=== PATIENT | male | born 1990 | race African-American/Black ===

== ENCOUNTER 2019-09-08 18:33 | Emergency (ER) | payer BC ==
--- NOTE | 2019-09-08 19:36 | ER Document Report ---
ED Hand/Wrist Injury - General Chief Complaint: Hand Injury Stated Complaint: RIGHT HAND/KNUCKLE INJURY Time Seen by Provider: 09/08/19 19:29 Primary Care Provider: LI GARZA DO [ACTIVE STAFF] - Follow up as needed Mode of Arrival: Ambulatory Information source: Patient Notes: 29-year-old male presented to ED for complaint of pain to his right hand. He states an engine block fell on his hand about 630 tonight. He states he has not had any Tylenol Motrin or anything for pain. I did offer Tylenol and Motrin and he refused both. He is alert oriented respirations regular nonlabored speaking in full sentences he is able to move all fingers. TRAVEL OUTSIDE OF THE [place] IN LAST 30 DAYS: No - HPI Injury to: Hand Onset: This evening - About 630 this evening Where: Outdoors Timing: Still present Quality of pain: Achy, Sharp Severity: Moderate Pain Level: 2 Context: Other - Engine block fell on his hand - Related Data Allergies/Adverse Reactions: No Known Allergies Allergy (Unverified 09/08/19 19:32) Past Medical History - General Information source: Patient - Social History Smoking Status: Current Every Day Smoker Cigarette use (# per day): Yes - 3/4 pack a day Smoking Education Provided: Yes - 4 minutes Frequency of alcohol use: None Drug Abuse: None Occupation: Cook Lives with: Friend Family History: Reviewed & Not Pertinent Patient has suicidal ideation: No Patient has homicidal ideation: No - Past Medical History Cardiac Medical History: Reports: None Pulmonary Medical History: Reports: None EENT Medical History: Reports: None Neurological Medical History: Reports: None Endocrine Medical History: Reports: None Renal/ Medical History: Reports: None Malignancy Medical History: Reports None GI Medical History: Reports: None Musculoskeletal Medical History: Reports None Skin Medical History: Reports None Psychiatric Medical History: Reports: None Traumatic Medical History: Reports: None Infectious Medical History: Reports: None Surgical Hx: Negative Past Surgical History: Reports: None Review of Systems - Review of Systems Constitutional: No symptoms reported EENT: No symptoms reported Cardiovascular: No symptoms reported Respiratory: No symptoms reported Gastrointestinal: No symptoms reported Genitourinary: No symptoms reported Male Genitourinary: No symptoms reported Musculoskeletal: Other - Pain swelling right hand Skin: No symptoms reported Hematologic/Lymphatic: No symptoms reported Neurological/Psychological: No symptoms reported -: Yes All other systems reviewed and negative Physical Exam - Vital signs Vitals: Temp Pulse Resp BP Pulse Ox 99.2 F 65 16 141/83 H 97 09/08/19 18:45 09/08/19 18:45 09/08/19 18:45 09/08/19 18:45 09/08/19 18:45 Interpretation: Normal - General General appearance: Appears well, Alert - HEENT Head: Normocephalic, Atraumatic Eyes: Normal Pupils: PERRL - Respiratory Respiratory status: No respiratory distress Chest status: Nontender Breath sounds: Normal Chest palpation: Normal - Cardiovascular Rhythm: Regular Heart sounds: Normal auscultation Murmur: No - Abdominal Inspection: Normal Distension: No distension Bowel sounds: Normal Tenderness: Nontender Organomegaly: No organomegaly - Back Back: Normal, Nontender - Extremities General upper extremity: Normal color, Normal ROM, Normal temperature General lower extremity: Normal inspection, Nontender, Normal color, Normal ROM, Normal temperature, Normal weight bearing. No: Margaret's sign Hand: Tender, Ecchymosis, No evidence of human bite, No evidence of FB, Swelling. No: Abrasion, Deformity, Dislocation, Instability, Laceration, Nail injury, Tendon deficit - Neurological Neuro grossly intact: Yes Cognition: Normal Orientation: AAOx4 [place] Coma Scale Eye Opening: Spontaneous [place] Coma Scale Verbal: Oriented [place] Coma Scale Motor: Obeys Commands [place] Coma Scale Total: 15 Speech: Normal Motor strength normal: LUE, RUE, LLE, RLE Sensory: Normal - Psychological Associated symptoms: Normal affect, Normal mood - Skin Skin Temperature: Warm Skin Moisture: Dry Skin Color: Normal Course - Re-evaluation Re-evalutation: 09/08/19 22:19 X-ray was discussed with patient. Report of x-ray given to patient before discharge. I did discuss with patient the need to elevate and ice the hand as he has a broken fourth and fifth metacarpal. He was treated with a splint and pain medications. He was discharged home with instructions to follow-up with orthopedics by telephone tomorrow. Patient did verbalize understanding and agreement with treatment plan and patient was discharged home. - Vital Signs Vital signs: Temp Pulse Resp BP Pulse Ox 98.3 F 67 18 132/78 H 98 09/08/19 21:20 09/08/19 21:20 09/08/19 21:20 09/08/19 21:20 09/08/19 21:20 - Diagnostic Test Radiology reviewed: Image reviewed, Reports reviewed Procedures - Immobilization Hand right Time completed: 21:16 Immobilizer type: Other Performed by: PCT Post-Proc Neuro Vasc Exam: Normal Alignment checked and good: Yes - No changes Discharge - Discharge Clinical Impression: Fracture fourth and fifth metacarpal right Condition: Stable Disposition: HOME, SELF-CARE Additional Instructions: Fractured fourth and fifth Metacarpal (Boxer's) You have a fracture of the fifth metacarpal bone in the hand, often called a Boxer's Fracture. The fracture is usually caused by striking the knuckle against a hard surface -- such as hitting a wall with the fist. This fracture heals well. Some degree of angle in the fracture is perfectly acceptable, resulting in only a slightly rounder knuckle. Your physician has determined whether your fracture could benefit from "setting", and has outlined a treatment plan for you. The usual treatment is splinting for four to six weeks -- a cast is not usually necessary. At first, the injury should be elevated and ice packed. Contact the doctor at once if swelling or pain becomes severe, or if numbness develops. Splint Pending Casting Your injury can't be casted until the swelling has subsided. Therefore, a temporary splint has been placed to protect the injury. Full use of an injured area is not possible in a splint. You should follow the doctor's instructions concerning rest, ice, and elevation of the injury. Never do anything which causes pain under the splint. Keep the splint on ALL THE TIME until you return for casting. If there is unexpected severe pain, or numbness, discoloration, or swelling beyond the spli nt, you should return at once. You need to follow-up with the orthopedic to determine if you need surgery to this fracture. ICE & ELEVATION: Apply ice packs frequently against the painful area. Many different schedules are recommended, such as "20 minutes on, 20 minutes off" or "one hour ice, two hours rest." If you need to work, you may need to go longer between ice treatments. You should plan to have the area ice packed AT LEAST one-fourth of the time. The ice should be applied over the wrap, tape, or splint, or over a layer of cloth -- not directly against the skin. Some ice bags have a built-in cloth and can be put directly on the skin. Your injured part should be elevated as much as possible over the next 48 hours. Try to keep the injury above the level of the heart. Avoid use of the injured area. Elevation and rest will decrease the swelling. USE OF DERM-QCT-GNKIKSC IBUPROFEN: Ibuprofen (Advil, Nuprin, Medipren, Motrin IB) is a medication for fever and pain control. In addition, it has anti- inflammatory effects which may be beneficial, especially in the treatment of injuries. It's best to take ibuprofen with food. Persons with ulcer disease or allergy to aspirin should notify their physician of this before taking ibuprofen. Ibuprofen can be given every four to six hours, for a total of four doses daily. Age Pain or fever dose Antiinflammatory dose 6-8 yr 200 mg (1 tab) 200 mg (1 tab) 9-11 yr 200 mg (1 tab) 200-400 mg (1-2 tab) 11-14 yr 200-400 mg (1-2 tab) 400 mg (2 tab) 15-adult 400 mg (2 tab) 600 mg (3 tab) ORAL NARCOTIC MEDICATION: You have been given a [place] dispense pack for pain control. This medication is a narcotic. It's best taken with food, as nausea can result if taken on an empty stomach. Don't operate machinery or drive within six hours of taking this medication. Do not combine this medicine with alcohol, or with any medication which can cause sedation (such as cold tablets or sleeping pills) unless you get permission from the physician. Narcotics tend to cause constipation. If possible, drink plenty of fluids and eat a diet high in fiber and fruits. Please be aware that prescription narcotics also have the potential for abuse. People become addicted to these medications because of the general sense of wellbeing that they induce. This feeling along with a significant reduction in tension, anxiety, and aggression provides a stimulating seductive quality to these drugs. Once your pain is under control, we encourage you to discard your unused narcotics. FOLLOW-UP CARE: If you have been referred to a physician for follow-up care, call the physicians office for an appointment as you were instructed or within the next two days. If you experience worsening or a significant change in your symptoms, notify the physician immediately or return to the Emergency Department at any time for re-evaluation. Forms: Elevated Blood Pressure, Special Work Note, Smoking Cessation Education Referrals: LI GARZA DO [ACTIVE STAFF] - Follow up tomorrow
--- NOTE | 2019-09-08 20:35 | RADIOLOGY REPORT (SQ) ---
EXAM DESCRIPTION: X-ray, three views of the right hand CLINICAL HISTORY: 29 years Male, crush injury COMPARISON: None. FINDINGS: Fracture of the fourth metacarpal is identified in the mid diaphysis with one complete shaft width displacement posteriorly of the distal fracture fragment and angulation. In addition there is a fracture of the fifth metacarpal at the distal metaphysis with apex dorsal angulation. Soft tissue swelling is seen. Bone mineralization is normal. No other fractures are noted. No air is noted in the soft tissues. IMPRESSION: Fractures of the fourth and fifth metacarpals.
[2019-09-08] MEDS ORDERED: HYDROCODONE/ACETAMINOPHEN 5-325 MG (6 TAB/ER DISP) PO PRN (20:37)
[2019-09-08 21:28] VITALS: BP 132/78
== END 2019-09-08 21:36 | disposition home or self-care (01) ==
LOC: ER 18:33
DX: S62.394A Other fracture of fourth metacarpal bone, right hand, initial encounter for closed fracture (principal); S62.396A Other fracture of fifth metacarpal bone, right hand, initial encounter for closed fracture; W20.8XXA Other cause of strike by thrown, projected or falling object, initial encounter; F17.210 Nicotine dependence, cigarettes, uncomplicated; Z71.6 Tobacco abuse counseling
CPT/HCPCS: 99283; 99406

== ENCOUNTER 2019-09-13 08:53 | Day surgery (SDC) | payer BC ==
[~2019-09-13 08:53] MED LIST: CEFAZOLIN 2 GM/D5W RTU 2 GM/50 ML RTUPB IV PRN; DEXAMETHASONE SOD PHOSPHATE INJ 4 MG/1 ML VIAL ONE; FENTANYL CITRATE INJ/PF 100 MCG/2 ML AMPUL ONE; MIDAZOLAM 2 MG/2 ML INJ ONE; ONDANSETRON HCL INJ/PF 4 MG/2 ML SDV ONE; PROPOFOL INJ 200 MG/20 ML VIAL IV ONE
[2019-09-13] MEDS ORDERED: CEFAZOLIN 2 GM/D5W RTU 2 GM/50 ML RTUPB IV ONE (09:31)
[2019-09-13] MEDS ORDERED: MIDAZOLAM 2 MG/2 ML INJ ONE (12:08)
[2019-09-13] MEDS ORDERED: FENTANYL CITRATE INJ/PF 100 MCG/2 ML AMPUL ONE (12:08)
[2019-09-13] MEDS ORDERED: PROPOFOL INJ 200 MG/20 ML VIAL IV ONE (12:08)
[2019-09-13] MEDS ORDERED: DEXAMETHASONE SOD PHOSPHATE INJ 4 MG/1 ML VIAL ONE (12:08)
[2019-09-13] MEDS ORDERED: ONDANSETRON HCL INJ/PF 4 MG/2 ML SDV ONE (12:08)
[2019-09-13] MEDS ORDERED: OXYCODONE-ACETAMINOPHEN 5-325 MG TABLET PO PRN ×3 (12:50→14:01)
[2019-09-13] MEDS ORDERED: MEPERIDINE HCL/PF INJ 25 MG/1 ML DISP.SYRIN IV PRN (12:50)
[2019-09-13] MEDS ORDERED: MORPHINE SULFATE 10 MG/ML INJ IV PRN ×2 (12:50→14:01)
[2019-09-13] MEDS ORDERED: DIPHENHYDRAMINE HCL 50 MG/ML VIAL IV PRN (12:50)
[2019-09-13] MEDS ORDERED: FENTANYL CITRATE INJ/PF 100 MCG/2 ML AMPUL IV PRN ×3 (12:50)
[2019-09-13] MEDS ORDERED: PROMETHAZINE HCL INJ 25 MG/1 ML VIAL IV PRN ×2 (12:50)
[2019-09-13] MEDS ORDERED: BUPIVACAINE HCL 0.5 % INJ/PF 30 ML SDV ONE (13:04)
[2019-09-13] MEDS ORDERED: ONDANSETRON HCL INJ/PF 4 MG/2 ML SDV IV PRN (14:01)
--- NOTE | 2019-09-13 14:01 | Operative Report ---
Operative Report DATE OF SURGERY: 09/13/19 PREOPERATIVE DIAGNOSIS: 1. Right fourth metacarpal shaft fracture. 2. Right fifth metacarpal neck fracture POSTOPERATIVE DIAGNOSIS: Same OPERATION: Open reduction fixation right fourth metacarpal shaft fracture with headless compression screw. Open reduction fixation right fifth metacarpal neck fracture with headless compression screw SURGEON: LI GARZA ANESTHESIA: GA COMPLICATIONS: None ESTIMATED BLOOD LOSS: Minimal PROCEDURE: Indication for above procedure: 29-year-old male who sustained fracture of his fourth and fifth metacarpals after punching a immobile object. Patient was seen at the emergency room where x-rays confirmed diagnosis. Patient was placed in a splint. Upon follow-up we discussed treatment options including operative versus nonoperative intervention after discussing risk and benefits decision was made to proceed with operative treatment. Procedure In Detail: Patient was seen and evaluated in the preoperative holding area. The upper extremity was initialized and marked. Patient received 2g of Ancef IV for bacterial prophylaxis. Patient was taken back to the operative room where transferred to the operative table and placed under general anesthesia. Once they were adequately anesthetized a nonsterile tourniquet was placed on the upper extremity. A surgical team debriefing was performed ensuring all instrumentation was available, the surgical procedure was discussed with possible concerns reviewed. The upper extremity was prepped with chlorhexidine and alcohol and draped in a sterile fashion. A timeout was done identifying correct patient, procedure and extremity everyone in attendance agree with this and verbalized no concerns. The extremity was exsanguinated the tourniquet was inflated to 250 mmHg. Longitudinal skin incision was made along the fourth MCP joint. Blunt dissection was performed a small peripheral veins were coagulated bipolar cautery. Extensor mechanism was then split midline to expose the metacarpal head. The dorsal third metacarpal head was identified and confirmed on C arm. Appropriate size K wire for [place] 3.0 mm headless compression screws was then placed to the fracture site the fracture was then reduced under fluoroscopy and K wire placed across the fracture. C-arm was obtained confirming reduction of the fracture there was no evidence of malrotation. The screw was countersunk and overdrilled and a 3.0 mm x 40 mm headless compression screw was placed across the fracture site obtaining interfragmentary compression. Attention then turned to the fifth metacarpal neck fracture. Longitudinal skin incision was made along the fifth MCP joint tensor mechanism was split fracture was reduced correcting patient's volar angular deformity there was likely prior fracture along the fifth metacarpal shaft which had completely healed and thus trajectory of the K wire was changed in order to obtain fixation. Appropriate size K wire for headless compression screws was then placed across the fracture site with a starting point along the dorsal third of the metacarpal head. C-arm was obtained confirming appropriate placement. A 3.0 mm x 36 mm headless compression screw was then inserted obtaining three-point fixation. At completion patient was placed through tenodesis there is no evidence of malrotation. No evidence of shortening. Wound was copiously irrigated with normal saline. 20 cc of 0.5% lidocaine without epinephrine was injected for postoperative pain control. Extensor mech anism closed interrupted 3-0 Vicryl suture. Skin was closed with subcuticular 4-0 Monocryl reinforced with Dermabond and Steri-Strips. Patient was placed in a volar resting splint immobilizing the MP joints of the fourth and fifth digits leaving the PIP and DIP joints free. Tourniquet was deflated patient had normal peripheral perfusion. Sponge counts, instrument counts, needle counts were correct. Patient was then awoken from anesthesia. Transferred from the operating room table to the operating room stretcher. There was no intraoperative complications patient tolerated procedure well stable to PACU. Postoperative plan: We will obtain x-rays at 2-week follow-up. Patient follow-up in 2 weeks we will transition to ulnar gutter splint which he may remove for range of motion exercises.
--- NOTE | 2019-09-13 14:02 | Discharge Summary ---
Discharge Summary (SDC) - Discharge Final Diagnosis: Right fourth/fifth metacarpal fracture Date of Surgery: 09/13/19 Discharge Date: 09/13/19 Condition: Good Forms: ASU Anesthesia D/C Instruction, Discharge POC-Surgical Service Treatment or Instructions: Schedule Follow Up w/ Dr. Jayce Garza @ [facility] for Surgery to be seen in 10-14 days or as scheduled [place]: [place]: [place]: Ice and elevate Keep splint clean/dry/intact, do not remove. If your fingers become numb please unwrap the Geraldo wrap but leave the splint in place, if the sensation does not return within 30 minutes please return to the emergency department. May begin finger range of motion attempting to make full fist. Please use ibuprofen (Motrin or Advil) 600-800 mg every 8 hours as needed for pain or fever DO NOT TAKE w/ TORADOL may use once TORADOL complete. You may also use acetaminophen (Tylenol) 1000 mg every 4-6 hours as needed for pain or fever. Please be aware that many medications contain acetaminophen, do not exceed a total of 1000 mg of acetaminophen every 6 hours. If ibuprofen and acetaminophen are not sufficient for your pain you may take the Percocet/[place]. Please be aware that the Percocet/[place] does contain Tylenol. Stool softener of choice when on pain medication. USE OF AGDA-RMR-TNLPURU IBUPROFEN: Ibuprofen (Advil, Nuprin, Medipren, Motrin IB) is a medication for fever and pain control. In addition, it has anti- inflammatory effects which may be beneficial, especially in the treatment of injuries. It's best to take ibuprofen with food. Persons with ulcer disease or allergy to aspirin should notify their physician of this before taking ibuprofen. Ibuprofen can be given every four to six hours, for a total of four doses daily. Age Pain or fever dose Antiinflammatory dose 6-8 yr 200 mg (1 tab) 200 mg (1 tab) 9-11 yr 200 mg (1 tab) 200-400 mg (1-2 tab) 11-14 yr 200-400 mg (1-2 tab) 400 mg (2 tab) 15-adult 400 mg (2 tab) 600 mg (3 tab) ORAL NARCOTIC MEDICATION: You have been given a prescription for pain control. This medication is a narcotic. It's best taken with food, as nausea can result if taken on an empty stomach. Don't operate machinery or drive within six hours of taking this medication. Do not combine this medicine with alcohol, or with any medication which can cause sedation (such as cold tablets or sleeping pills) unless you get permission from the physician. Narcotics tend to cause constipation. If possible, drink plenty of fluids and eat a diet high in fiber and fruits. Please be aware that prescription narcotics also have the potential for abuse. People become addicted to these medications because of the general sense of wellbeing that they induce. This feeling along with a significant reduction in tension, anxiety, and aggression provides a stimulating seductive quality to these drugs. Once your pain is under control, we encourage you to discard your unused narcotics. Prescriptions: Ketorolac Tromethamine [Toradol 10 mg Tablet] 10 mg PO Q8HP PRN #12 tablet PRN Reason: Oxycodone HCl/Acetaminophen [Percocet 5-325 mg Tablet] 1 tab PO Q6 PRN #25 tab PRN Reason: Referrals: JAYCE GARZA DO [ACTIVE STAFF] - Discharge Diet: As Tolerated Discharge Activity: No Driving, No Lifting Over 10 Pounds, No Lifting/Push/Pulling Report the Following to Your Physician Immediately: Fever over 101 Degrees, Unusual Bleeding, Redness, Swelling, Warmth, Increased Soreness
--- NOTE | 2019-09-13 14:54 | RADIOLOGY REPORT (SQ) ---
EXAM DESCRIPTION: HAND RIGHT 3 VIEWS; NO CHG FLUORO IMAGES COMPLETED DATE/TIME: 09/13/2019 2:21 pm REASON FOR STUDY: ORIF RIGHT HAND ASSISTED WITH FLUORO IN OR COMPARISON: None. FLUOROSCOPY TIME: 1 minutes and 10 seconds. 5 images submitted to PACS. TECHNIQUE: Intraoperative fluoroscopic images of the right hand were obtained during open reduction and internal fixation of acute displaced fractures of the 4th and 5th metacarpals ; the fractures hav e been reduced and there are cannulated screws in place that transfix the 4th and 5th metacarpals. LIMITATIONS: None. IMPRESSION: IMAGE(S) OBTAINED DURING PROCEDURE. COMMENT: Quality ID [id number]: Final reports for procedures using fluoroscopy that document radiation exp osure indices, or exposure time and number of fluorographic images (if radiation exposure indices are not available) Please consult full operative report of the attending physician for description of the procedure. TECHNICAL DOCUMENTATION: JOB ID: [id number] 2010 [employer]- All Rights Reserved Reading location - IP/workstation name: [email or web address]
--- NOTE | 2019-09-13 14:54 | RADIOLOGY REPORT (SQ) ---
EXAM DESCRIPTION: HAND RIGHT 3 VIEWS; NO CHG FLUORO IMAGES COMPLETED DATE/TIME: 09/13/2019 2:21 pm REASON FOR STUDY: ORIF RIGHT HAND ASSISTED WITH FLUORO IN OR COMPARISON: None. FLUOROSCOPY TIME: 1 minutes and 10 seconds. 5 images submitted to PACS. TECHNIQUE: Intraoperative fluoroscopic images of the right hand were obtained during open reduction and internal fixation of acute displaced fractures of the 4th and 5th metacarpals ; the fractures hav e been reduced and there are cannulated screws in place that transfix the 4th and 5th metacarpals. LIMITATIONS: None. IMPRESSION: IMAGE(S) OBTAINED DURING PROCEDURE. COMMENT: Quality ID [id number]: Final reports for procedures using fluoroscopy that document radiation exp osure indices, or exposure time and number of fluorographic images (if radiation exposure indices are not available) Please consult full operative report of the attending physician for description of the procedure. TECHNICAL DOCUMENTATION: JOB ID: [id number] 2010 [employer]- All Rights Reserved Reading location - IP/workstation name: [email or web address]
[2019-09-13] MEDS ORDERED: IBUPROFEN 800 MG TABLET ONE (15:07)
[2019-09-13] MEDS ORDERED: IBUPROFEN 800 MG TABLET PO ONE (15:45)
[2019-09-13 16:05] VITALS: BP 134/92
== END 2019-09-13 15:55 | disposition home or self-care (01) ==
LOC: OROUT 08:53
PROVIDERS: ATTEND Orthopaedic Surgery
DX: S62.324A Displaced fracture of shaft of fourth metacarpal bone, right hand, initial encounter for closed fracture (principal); S62.336A Displaced fracture of neck of fifth metacarpal bone, right hand, initial encounter for closed fracture; W22.09XA Striking against other stationary object, initial encounter; F17.210 Nicotine dependence, cigarettes, uncomplicated
CPT/HCPCS: 36415; 87635; 73130; 26615 ×2; J2250; J3490; J1100; J3010; J2405; J2704; J0690; C9803; 01830

== ENCOUNTER → 2020-04-17 | Outpatient (CLI) | payer BC ==
[~2020-04-17] MED LIST changes: -CEFAZOLIN 2 GM/D5W RTU 2 GM/50 ML RTUPB IV PRN; +COVID-19 VACCINE (PFIZER)/PF 30 MCG/0.3 ML VIAL IM ONE; -DEXAMETHASONE SOD PHOSPHATE INJ 4 MG/1 ML VIAL ONE; +EPINEPHRINE INJ/PF 1 MG/1 ML AMPULE IM PRN; -FENTANYL CITRATE INJ/PF 100 MCG/2 ML AMPUL ONE; -MIDAZOLAM 2 MG/2 ML INJ ONE; -ONDANSETRON HCL INJ/PF 4 MG/2 ML SDV ONE; -PROPOFOL INJ 200 MG/20 ML VIAL IV ONE
== END ==
LOC: EMPHEALTH 14:01
PROVIDERS: ATTEND Internal Medicine
DX: Z23 Encounter for immunization (principal)
CPT/HCPCS: 91300